=== PATIENT | male | born 1990 | race African-American/Black ===

== ENCOUNTER 2023-03-09 13:03 | Inpatient (IN) | payer BC ==
[2023-03-09 14:32] VITALS: BMI 27.4
[2023-03-09] MEDS ORDERED: ONDANSETRON *ODT* 4 MG TABLET SL PRN (16:05)
[2023-03-09] MEDS ORDERED: DICYCLOMINE HCL 10 MG CAPSULE PO PRN (16:05)
[2023-03-09] MEDS ORDERED: BISMUTH SUBSALICYLATE 524 MG/30 ML PO PRN (16:05)
[2023-03-09] MEDS ORDERED: IBUPROFEN 400 MG TABLET (FP) PO PRN (16:05)
[2023-03-09] MEDS ORDERED: guaiFENesin 600 MG TABLET.ER (FP) PO PRN (16:05)
[2023-03-09] MEDS ORDERED: P-EPHED 60MG/TRIPROLIDI 2.5MG TABLET PO PRN (16:05)
[2023-03-09] MEDS ORDERED: MAGNESIUM HYDROX 2400MG/30ML ORAL SUSPENSION 30 ML CUP PO PRN (16:05)
[2023-03-09] MEDS ORDERED: NICOTINE POLACRILEX 2 MG GUM BUC PRN (16:05)
[2023-03-09] MEDS ORDERED: IBUPROFEN 600 MG TABLET (FP) PO PRN (16:05)
[2023-03-09] MEDS ORDERED: hydrOXYzine PAMOATE 25 MG CAPSULE (FP) PO PRN (16:05)
[2023-03-09] MEDS ORDERED: POLYETHYLENE GLYCOL (HEALTHYLAX) 3350 17 GM PACKET PO PRN (16:05)
[2023-03-09] MEDS ORDERED: LOPERAMIDE HCL 2 MG CAPSULE PO PRN (16:05)
[2023-03-09] MEDS ORDERED: BENZOCAINE/MENTHOL (CHLORASEPTIC ) LOZENGE MM PRN (16:05)
[2023-03-09] MEDS ORDERED: MAG HYDROX/AL HYDROX/SIMETH 30 ML UNIT-DOSE CUP PO PRN (16:05)
[2023-03-09] MEDS ORDERED: ACETAMINOPHEN 325 MG TABLET (FP) PO PRN (16:05)
[2023-03-09] MEDS ORDERED: BENZONATATE 200 MG CAPSULE PO PRN (16:05)
[2023-03-10] MEDS: THIAMINE HCL 100 MG TABLET (FP) PO SCH ×2 (00:16→22:05)
[2023-03-10] MEDS: MELATONIN 5 MG TABLETS PO SCH ×2 (00:16→23:01)
[2023-03-10] MEDS: PRENATAL VITAMINS W/ FOLIC ACID TABLET (FP) PO SCH (10:10)
[2023-03-11] MEDS: PRENATAL VITAMINS W/ FOLIC ACID TABLET (FP) PO SCH (10:03)
[2023-03-11 10:21] LABS: POTASSIUM 4.5 mmol/L (3.5-5.1)
[2023-03-11 10:28] LABS: ALBUMIN 3.7 g/dl (3.4-5.0); BLOOD UREA NITROGEN 12.1 mg/dL (7-18); CALCIUM 9.4 mg/dL (8.5-10.1); CREATININE 1.1 mg/dL (0.55-1.3)
[2023-03-11 10:30] LABS: BILIRUBIN,TOTAL 0.2 mg/dL (0.2-1); TOT PROT 6.8 g/dl (6.4-8.2)
[2023-03-11 10:33] LABS: BASO % 0.4 % (0-2.0); EOS % 1.9 % (0-4.5); HEMATOCRIT 41.6 % (35.4-49); HEMOGLOBIN 13.4 GM/dL (11.7-16.9); LYMPH % 43.5 % (8-40); MCH 26.5 pg (25.7-33.7); MCHC 32.2 g/dl (32.0-35.9); MEAN CELL VOLUME 82.4 fl (80-96); MEAN PLT VOLUME 9.3 fl (7.5-11.1); MONO % 9.7 % (3.8-10.2); NEUT % 44.5 % (42.8-82.8); PLATELET COUNT 217 10^3/uL (134-434); RBC 5.05 M/mm3 (4.00-5.60); RDW 14.2 % (11.9-15.9); WHITE BLOOD COUNT 6.1 K/mm3 (4.0-10.0)
[2023-03-11] MEDS: MELATONIN 5 MG TABLETS PO SCH (23:46)
[2023-03-11] MEDS: THIAMINE HCL 100 MG TABLET (FP) PO SCH (23:46)
[2023-03-12 09:32] VITALS: BP 147/72; PULSE 90; RESP 18; TEMP 97.8
[2023-03-12] MEDS: PRENATAL VITAMINS W/ FOLIC ACID TABLET (FP) PO SCH (09:49)
== END 2023-03-12 08:49 | disposition home or self-care (01) | DRG 774 ==
LOC: YASAS 13:03 → Y6N 16:54
PROVIDERS: ADMIT Allergy & Immunology; ATTEND Surgery
PROC: HZ2ZZZZ Detoxification Services for Substance Abuse Treatment (ICD-10-PCS; principal; 2023-03-09)
DX: F10.20 Alcohol dependence, uncomplicated (principal); F14.20 Cocaine dependence, uncomplicated; F17.210 Nicotine dependence, cigarettes, uncomplicated; Z28.310 Unvaccinated for COVID-19; Z28.9 Immunization not carried out for unspecified reason
CPT/HCPCS: 36415; 80053; 85025; 87635